=== PATIENT | male | born 1965 | race Caucasian/White ===

== ENCOUNTER 2019-06-22 14:17 | Emergency (ER) | payer OTHER ==
--- NOTE | 2019-06-22 15:37 | EDM.PDOC ---
ED HPI GENERAL MEDICAL PROBLEM - General Chief Complaint: Upper Extremity Injury/Pain Stated Complaint: RT ELBOW INJURY Time Seen by Provider: 06/22/19 14:29 Source of Information: Reports: Patient History Limitations: Reports: No Limitations - History of Present Illness INITIAL COMMENTS - FREE TEXT/NARRATIVE: Patient is a 53-year-old male who presents to the emergency department with complaints of swelling to his right elbow. He states proximally 2 weeks ago he hit his elbow on what he thinks was a bolt. It did not break the skin, however he did have significant bruising to his upper forearm as well as his elbow. The swelling has improved, however he does have a golf ball sized pocket directly over his olecranon process. He states it is tender if he bumps it on something is quite painful. Patient does verbalize that he drinks alcohol daily. 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 Right Elbow Pain Score (Numeric/FACES): 9 - Related Data Allergies Allergy/AdvReac Type Severity Reaction Status Date / Time No Known Allergies Allergy Verified 06/22/19 14:27 Home Meds: Home Meds Naproxen [Naprosyn] 500 mg PO Q12HR 7 Days #14 tab 06/22/19 [Rx] Omeprazole 20 mg PO DAILY #7 nick. 06/22/19 [Rx] Past Medical History HEENT History: Reports: None Cardiovascular History: Reports: Hypertension, [place] Respiratory History: Reports: Asthma, Other (See Below) Other Respiratory History: polyps in lungs Gastrointestinal History: Reports: None Genitourinary History: Reports: None Musculoskeletal History: Reports: Arthritis Other Musculoskeletal History: Toes were fused and corrected surgically Neurological History: Reports: None Psychiatric History: Reports: None Endocrine/Metabolic History: Reports: None Hematologic History: Reports: None Other Immunologic History: Hep C states it is dorment Oncologic (Cancer) History: Reports: None Dermatologic History: Reports: None - Infectious Disease History Infectious Disease History: Reports: Hepatitis C - Past Surgical History HEENT Surgical History: Reports: Tonsillectomy Musculoskeletal Surgical History: Reports: Carpal Tunnel Social & Family History - Family History Family Medical History: Noncontributory Oncologic: Reports: Brain, Lymphoma - Tobacco Use Smoking Status *Q: Former Smoker Used Tobacco, but Quit: Yes Month/Year Tobacco Last Used: 06/12 - Caffeine Use Caffeine Use: Reports: Coffee, Energy Drinks, Soda, Tea - Alcohol Use Number of Drinks Per Day: 8 Date of Last Drink: 06/22/19 Time of Last Drink: 12:00 - Recreational Drug Use Recreational Drug Use: Yes Drug Use in Last 12 Months: No Recreational Drug Type: Reports: Marijuana/Hashish Recreational Drug Use Frequency: Not Used In Over 1 Year Review of Systems - Review of Systems Review Of Systems: See Below Constitutional: Reports: No Symptoms Eyes: Reports: No Symptoms Ears: Reports: No Symptoms Nose: Reports: No Symptoms Mouth/Throat: Reports: No Symptoms Respiratory: Reports: No Symptoms Cardiovascular: Reports: No Symptoms GI/Abdominal: Reports: No Symptoms Genitourinary: Reports: No Symptoms Musculoskeletal: Reports: Other (Right elbow pain and swelling) Skin: Reports: Bruising (Mostly healed) Neurological: Reports: No Symptoms Psychiatric: Reports: No Symptoms ED EXAM, GENERAL - Physical Exam Exam: See Below Exam Limited By: No Limitations General Appearance: Alert, WD/WN, No Apparent Distress Respiratory/Chest: No Respiratory Distress, Lungs Clear, Normal Breath Sounds, No Accessory Muscle Use, Chest Non-Tender Cardiovascular: Normal Peripheral Pulses, Regular Rate, Rhythm, No Edema, No Murmur Extremities: Normal Range of Motion, Other (Tender, spongy, golf ball sized enlargement of the olecranon bursa. Light, mostly healed area of ecchymosis to the right upper forearm. Patient is able to move the extremity without difficulty, however verbalizes pain to the olecranon when the arm is in full flexion) Neurological: Alert, Oriented, Normal Cognition Psychiatric: Normal Affect, Normal Mood Skin Exam: Warm, Dry, Intact, Normal Color, No Rash Lymphatic: No Adenopathy Course - Vital Signs Last Recorded V/S: Last Vital Signs Temp 97.3 F 06/22/19 14:31 Pulse 88 06/22/19 14:31 Resp 6 L 06/22/19 14:31 BP 153/93 H 06/22/19 14:31 Pulse Ox 97 06/22/19 14:31 - Orders/Labs/Meds Orders: Active Orders 24 hr Category Date Time Status Elbow Min 3V Rt [CR] Stat Exams 06/22/19 14:47 Taken - Re-Assessments/Exams Free Text/Narrative Re-Assessment/Exam: 06/22/19 15:20 X-ray of the right elbow shows no bony abnormality. The patient does have bursitis of the right elbow. Discussed the risk to benefit of attempting to aspirate the bursa. Patient elected to give it a few more weeks to heal to see if it improves on its own. We did wrap the joint with an Arnel wrap and discuss him picking up an elbow brace at a drugstore. I will order a 7 day course of Naprosyn. I discussed with the patient that he should not drink while using this, however he states that he likely will any way. He has no history of GI bleeds. I also ordered him to take omeprazole 20 mg daily while taking the Naprosyn to provide protection to his stomach. He is also advised to take the medication with food. Discharge instructions as noted. Departure - Departure Time of Disposition: 15:30 Disposition: Home, Self-Care 01 Condition: Good Clinical Impression: Olecranon bursitis of right elbow - Discharge Information *PRESCRIPTION DRUG MONITORING PROGRAM REVIEWED*: No *COPY OF PRESCRIPTION DRUG MONITORING REPORT IN PATIENT JOANA: No Prescriptions: Naproxen [Naprosyn] 500 mg PO Q12HR 7 Days #14 tab Omeprazole 20 mg PO DAILY #7 capsule.dr Instructions: Elbow Bursitis, [id number] Referrals: PCP,Not In Area [Primary Care Provider] - Forms: ED Department Discharge Additional Instructions: You were seen in the emergency department today for pain and swelling to your right elbow after having a traumatic injury 2 weeks ago. X-rays of the elbow were negative. There are no signs of any fractures or bone chips. You do have a traumatic bursitis of the elbow. An Arnel wrap was applied for compression. You may also purchase an elastic elbow brace at any drugstore. We recommend that you wear this for the next couple weeks and try to avoid trauma or rubbing to the elbow. A prescription has been sent for Naprosyn and omeprazole [facility] [place]. The Naprosyn as an anti-inflammatory that you should take twice daily for 7 days. The omeprazole is an antacid that will help to protect your stomach from the medication since you do consume alcohol. As we discussed, I do recommend that you try to avoid alcohol consumption while you're taking the Naprosyn as it can cause medication to be more hard on your stomach. You should also take the medication with food. Generally traumatic bursitis tends to resolve on its own over the course of few weeks. If the area is not improving or the swelling is seeming to get worse, aspiration of the fluid may be an option. We recommend that she follow-up with a primary care provider to discuss this option or if the pain should worsen you may return to the emergency department. Sepsis Event Note - Evaluation Sepsis Screening Result: No Definite Risk - Focused Exam Vital Signs: Vital Signs Temp Pulse Resp BP Pulse Ox 06/22/19 14:31 97.3 F 88 6 L 153/93 H 97 Date Exam was Performed: 06/22/19 Time Exam was Performed: 15:37 - My Orders Last 24 Hours: My Active Orders 06/22/19 14:47 Elbow Min 3V Rt [CR] Stat - Assessment/Plan Last 24 Hours: My Active Orders 06/22/19 14:47 Elbow Min 3V Rt [CR] Stat
--- NOTE | 2019-06-24 07:12 | CR ---
Right elbow: Four views of the right elbow were obtained. Comparison: No previous elbow study. No joint effusion is seen. No acute fracture, dislocation or other bony abnormality is identified. Soft tissue swelling is noted within the region of the olecranon bursa. Impression: 1. Soft tissue swelling in the region of the olecranon bursa. 2. Right elbow study is otherwise unremarkable. Diagnostic code #3 This report was dictated in [place] Standard Time
== END 2019-06-22 16:06 | disposition home or self-care (01) ==
LOC: JD.ED 14:17
DX: M70.21 Olecranon bursitis, right elbow (principal); I10 Essential (primary) hypertension; J45.909 Unspecified asthma, uncomplicated; I25.2 Old myocardial infarction; M19.90 Unspecified osteoarthritis, unspecified site; Z87.891 Personal history of nicotine dependence; Z79.899 Other long term (current) drug therapy
CPT/HCPCS: 73080-26-RT; 73080-RT; 99283; 99283-25

== ENCOUNTER 2020-04-01 10:29 | Emergency (ER) | payer OTHER ==
--- NOTE | 2020-04-01 10:41 | EDM.PDOC ---
ED HPI GENERAL MEDICAL PROBLEM - General Chief Complaint: Cardiovascular Problem Stated Complaint: [facility] Time Seen by Provider: 04/01/20 10:39 Source of Information: Reports: Patient History Limitations: Reports: No Limitations - History of Present Illness INITIAL COMMENTS - FREE TEXT/NARRATIVE: 54-year-old man presents to the clinic at the request of his primary care particular practitioner in [facility]. Reports central chest pressure discomfort since about 2100 hrs. last night when he went to bed. He states he slept all night in fact was a little late for work this morning. States the pain was perhaps a little bit less this morning when he got up and it was last night but still present. He it does not radiate anywhere. No worse or better with drinking and swallowing i.e. no true odynophagia. Past history of heartburn but it really has not bothered him much as of late. No extra burping or belching. No known history of coronary artery disease. Quit smoking cigarettes about a year ago. Used to smoke a pack per day. Still chews some tobacco. Drinks alcohol on a fairly regular basis usually a drink or 2/day. Denies nausea vomiting or diarrhea. Does not feel short of breath. Has a bit of a smoker's cough with occasional brownish sputum production. At the clinic they gave him 324 mg aspirin chewed and a nitroglycerin tablet which he states did seem to help relieve the discomfort in his central chest. ECG done by triage nurse shows sinus rhythm at 66/min. There are Q waves in V1 and V2 suggestive of an old anteroseptal myocardial infarction. There are no signs of acute ischemic change. The patient list Cialis is 1 of his medications but he states he has not taken it for over a month. Onset: Gradual Onset Date: 03/31/20 Onset Time: 21:30 Duration: Hour(s):, Constant, Improving Location: Reports: Chest (Central chest heaviness with no radiation of pain to the back neck or shoulders or arms.) Quality: Reports: Ache, Pressure Severity: Mild Improves with: Reports: None Worsens with: Reports: None, Other Context: Reports: Other. Denies: Activity (Chest pressure discomfort is not any worse on exertion this morning.), Exercise, Lifting, Sick Contact, Trauma Associated Symptoms: Reports: No Other Symptoms (Came on gradually before bed last night.), Chest Pain, Cough. Denies: Confusion, cough w sputum, Diaphoresis, Fever/Chills, Headaches, Loss of Appetite, Malaise, Nausea/Vomiting, Rash, Seizure, Shortness of Breath, Syncope, Weakness Treatments [employer]: Reports: EKG, Other (see below) (Saved aspirin 324 mg at the clinic and killed there as well as a nitroglycerin tablet sublingual.) Left Chest Pain Score (Numeric/FACES): 5 - Related Data Allergies Allergy/AdvReac Type Severity Reaction Status Date / Time No Known Allergies Allergy Verified 04/01/20 10:35 Home Meds: Home Meds Aspirin 81 mg PO DAILY 04/01/20 [History] Famotidine [Pepcid] 20 mg PO BEDTIME #30 tab 04/01/20 [Rx] Tadalafil [Cialis] 10 mg PO DAILY PRN 04/01/20 [History] amLODIPine [Norvasc] 5 mg PO DAILY 04/01/20 [History] atorvaSTATin [Lipitor] 80 mg PO BEDTIME 04/01/20 [History] carvediloL [Carvedilol] 25 mg PO BID 04/01/20 [History] lisinopriL [Lisinopril] 40 mg PO DAILY 04/01/20 [History] Past Medical History HEENT History: Reports: None Cardiovascular History: Reports: Hypertension, MS Respiratory History: Reports: Asthma, Other (See Below) Other Respiratory History: polyps in lungs Gastrointestinal History: Reports: None Genitourinary History: Reports: None, BPH (BPH by history with slow urinary stream not treated.), Other (See Below) (History of erectile dysfunction for the last year or 2.) Musculoskeletal History: Reports: Arthritis Other Musculoskeletal History: Toes were fused and corrected surgically Neurological History: Reports: None Psychiatric History: Reports: None Endocrine/Metabolic History: Reports: None Hematologic History: Reports: None Other Immunologic History: Hep C states it is dorment Oncologic (Cancer) History: Reports: None Dermatologic History: Reports: None - Infectious Disease History Infectious Disease History: Reports: Hepatitis C - Past Surgical History HEENT Surgical History: Reports: Tonsillectomy Musculoskeletal Surgical History: Reports: Carpal Tunnel Social & Family History - Family History Family Medical History: Noncontributory Oncologic: Reports: Brain, Lymphoma - Tobacco Use Smoking Status *Q: Current Every Day Smoker Years of Tobacco use: 20 Packs/Tins Daily: 1 - Caffeine Use Caffeine Use: Reports: Coffee, Energy Drinks - Alcohol Use Alcohol Use History: Yes - Recreational Drug Use Recreational Drug Use: Yes Recreational Drug Type: Reports: Marijuana/Hashish - Living Situation & Occupation Living situation: Reports: Single 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 Denies: Wheezing, Pleuritic Chest Pain (Occasional shortness of breath on exertion), Sputum, Hemoptysis (Occasional nonproductive cough.) Cardiovascular: Reports: Chest Pain, Blood Pressure Problem (History see history of present illness), Lightheadedness (Lightheaded dizzy). Denies: Claudication, Dyspnea on Exertion, Edema ( like he might pass out.), Orthopnea ( medications and admits that he is not very compliant with his blood pressure medications forgets to take them.), Palpitations (Not aware of any palpitations) Endocrine: Reports: Fatigue GI/Abdominal: Reports: No Symptoms. Denies: Nausea, Vomiting : Reports: Frequency, Other (Reports erectile dysfunction for the last couple of years) Musculoskeletal: Reports: Joint Pain (Right his knees hips low back and neck at times) Skin: Reports: No Symptoms Neurological: Reports: Dizziness Psychiatric: Reports: No Symptoms (Dizzy and lightheaded with a associated chest pain development last night which persisted this morning. Feels like he could pass out. No symptoms of true vertigo.) Hematologic/Lymphatic: Reports: No Symptoms Immunologic: Reports: No Symptoms ED EXAM, GENERAL - Physical Exam Exam: See Below Exam Limited By: No Limitations General Appearance: Alert, WD/WN, No Apparent Distress EKG INTERPRETATION EKG Date: 04/01/20 Time: 10:28 Rhythm: NSR Rate (Beats/Min): 66 (Multiple multifocal PVCs) [place]: Normal P-Wave: Enlarged (Left atrial hypertrophy pattern) QRS: Other (Q waves V1 V2 suggesting old anteroseptal myocardial infarction.) ST-T: Other (T wave inversion aVL nonspecific finding) QT: Prolonged (Minimally prolonged) EKG Interpretation Comments: Abnormal ECG Course - Vital Signs Last Recorded V/S: Last Vital Signs Temp 35.8 C L 04/01/20 10:30 Pulse 72 04/01/20 10:30 Resp 16 04/01/20 10:30 BP 150/86 H 04/01/20 10:30 Pulse Ox 97 04/01/20 10:30 - Orders/Labs/Meds Orders: Active Orders 24 hr Category Date Time Status EKG Documentation Completion [RC] STAT Care 04/01/20 10:40 Active Influenza Vaccine Charge [RC] .DISCHARGE Care 04/01/20 10:40 Active Chest 1V Frontal [CR] Stat Exams 04/01/20 10:40 Taken PRO B-TYPE NATRIUR PEPT,BNPPRO [CHEM] Stat Lab 04/01/20 10:43 Received PSA SCREEN [CHEM] Stat Lab 04/01/20 10:43 Received URINALYSIS W/MICROSCOPIC [UA W/MICROSCOPIC] [URIN] Stat Lab 04/01/20 10:41 Ordered Dextrose 5%-0.9% NaCl [Dextrose 5%-Normal Saline] 1,000 Med 04/01/20 10:45 Active ml IV ASDIRECTED Dextrose 5%-0.9% NaCl [Dextrose 5%-Normal Saline] 1,000 Med 04/01/20 11:00 Active ml IV ASDIRECTED Nitroglycerin/D5W [Nitroglycerin 25 MG/D5W 250 ML] Med 04/01/20 11:30 Active 25 mg in 250 ml IV TITRATE Medication Orders Dextrose/Sodium Chloride (Dextrose 5%-Normal Saline) 1,000 mls @ 125 mls/hr IV ASDIRECTED CELINE Last Admin: 04/01/20 11:09 Dose: 125 mls/hr Documented by: DONNA Dextrose/Sodium Chloride (Dextrose 5%-Normal Saline) 1,000 mls @ 150 mls/hr IV ASDIRECTED CELINE Nitroglycerin/Dextrose (Nitroglycerin 25 Mg/D5w 250 Ml) 25 mg in 250 mls @ 6 mls/hr IV TITRATE CELINE; Protocol Labs: Laboratory Tests 04/01/20 04/01/20 04/01/20 Range/Units 10:43 10:43 10:43 WBC 9.52 H (4.23-9.07) K/mm3 RBC 4.35 L (4.63-6.08) M/mm3 Hgb 13.3 L (13.7-17.5) gm/dl Hct 39.9 L (40.1-51.0) % MCV 91.7 (79.0-92.2) fl MCH 30.6 (25.7-32.2) pg MCHC 33.3 (32.2-35.5) g/dl RDW Std Deviation 40.9 (35.1-43.9) fL Plt Count 238 (163-337) K/mm3 MPV 9.7 (9.4-12.3) fl Neut % (Auto) 69.0 H (34.0-67.9) % Lymph % (Auto) 19.9 L (21.8-53.1) % [place] % (Auto) 8.5 (5.3-12.2) % Eos % (Auto) 2.0 (0.8-7.0) Baso % (Auto) 0.5 (0.1-1.2) % Neut # (Auto) 6.57 H (1.78-5.38) K/mm3 Lymph # (Auto) 1.89 (1.32-3.57) K/mm3 [place] # (Auto) 0.81 (0.30-0.82) K/mm3 Eos # (Auto) 0.19 (0.04-0.54) K/mm3 Baso # (Auto) 0.05 (0.01-0.08) K/mm3 PT 10.8 (9.7-11.7) SECONDS INR 1.01 APTT 25 (22-31) SECONDS D-Dimer, Quantitative (0.19-0.50) mg/L Sodium 137 (136-145) mEq/L Potassium 3.6 (3.5-5.1) mEq/L Chloride 102 (98-107) mEq/L Carbon Dioxide 27 (21-32) mEq/L Anion Gap 11.6 (5-15) BUN 26 H (7-18) mg/dL Creatinine 1.6 H (0.7-1.3) mg/dL Est Cr Clr Drug Dosing 55.56 mL/min Estimated GFR (MDRD) 45 (>60) mL/min BUN/Creatinine Ratio 16.3 (14-18) Glucose 95 (74-106) mg/dL Calcium 8.8 (8.5-10.1) mg/dL Magnesium 2.2 (1.8-2.4) mg/dl Total Bilirubin 0.7 (0.2-1.0) mg/dL AST 13 L (15-37) U/L ALT 26 (16-63) U/L Alkaline Phosphatase 86 (46-116) U/L CK-MB (CK-2) 1.5 (0-3.6) ng/ml Troponin I < 0.017 (0.00-0.056) ng/mL C-Reactive Protein <0.2 (<1.0) mg/dL Total Protein 6.5 (6.4-8.2) g/dl Albumin 3.4 (3.4-5.0) g/dl Globulin 3.1 gm/dL Albumin/Globulin Ratio 1.1 (1-2) 04/01/20 Range/Units 10:43 WBC (4.23-9.07) K/mm3 RBC (4.63-6.08) M/mm3 Hgb (13.7-17.5) gm/dl Hct (40.1-51.0) % MCV (79.0-92.2) fl MCH (25.7-32.2) pg MCHC (32.2-35.5) g/dl RDW Std Deviation (35.1-43.9) fL Plt Count (163-337) K/mm3 MPV (9.4-12.3) fl Neut % (Auto) (34.0-67.9) % Lymph % (Auto) (21.8-53.1) % [place] % (Auto) (5.3-12.2) % Eos % (Auto) (0.8-7.0) Baso % (Auto) (0.1-1.2) % Neut # (Auto) (1.78-5.38) K/mm3 Lymph # (Auto) (1.32-3.57) K/mm3 [place] # (Auto) (0.30-0.82) K/mm3 Eos # (Auto) (0.04-0.54) K/mm3 Baso # (Auto) (0.01-0.08) K/mm3 PT (9.7-11.7) SECONDS INR APTT (22-31) SECONDS D-Dimer, Quantitative < 0.19 L (0.19-0.50) mg/L Sodium (136-145) mEq/L Potassium (3.5-5.1) mEq/L Chloride (98-107) mEq/L Carbon Dioxide (21-32) mEq/L Anion Gap (5-15) BUN (7-18) mg/dL Creatinine (0.7-1.3) mg/dL Est Cr Clr Drug Dosing mL/min Estimated GFR (MDRD) (>60) mL/min BUN/Creatinine Ratio (14-18) Glucose (74-106) mg/dL Calcium (8.5-10.1) mg/dL Magnesium (1.8-2.4) mg/dl Total Bilirubin (0.2-1.0) mg/dL AST (15-37) U/L ALT (16-63) U/L Alkaline Phosphatase (46-116) U/L CK-MB (CK-2) (0-3.6) ng/ml Troponin I (0.00-0.056) ng/mL C-Reactive Protein (<1.0) mg/dL Total Protein (6.4-8.2) g/dl Albumin (3.4-5.0) g/dl Globulin gm/dL Albumin/Globulin Ratio (1-2) Meds: Medications Generic Name Dose Route Start Last Admin Trade Name Freq PRN Reason Stop Dose Admin Dextrose/Sodium Chloride 1,000 mls @ 125 mls/hr 04/01/20 10:45 04/01/20 11:09 Dextrose 5%-Normal Saline IV 125 mls/hr ASDIRECTED CELINE Administration Dextrose/Sodium Chloride 1,000 mls @ 150 mls/hr 04/01/20 11:00 Dextrose 5%-Normal Saline IV ASDIRECTED CELINE Nitroglycerin/Dextrose 25 mg in 250 mls @ 6 mls/hr 04/01/20 11:30 Nitroglycerin 25 Mg/D5w 250 Ml IV TITRATE CELINE Protocol 10 MCG/MIN Discontinued Medications Generic Name Dose Route Start Last Admin Trade Name Freq PRN Reason Stop Dose Admin Influenza Virus Vaccine 60 mcg 04/01/20 11:30 04/01/20 11:10 Fluzone Quad 1050-2115 Syringe IM 04/01/20 11:31 60 mcg .ONCE ONE Administration - Radiology Interpretation Free Text/Narrative:: 54-year-old male sent in from [facility] where he seen a primary care provider at the clinic. He was complaining of central chest pain that started last night before bed and persisted overnight and was slightly improved this morning. No relief with burping belching or swallowing. Patient therefore to the ED for cardiac evaluation and rule out of MS. - Re-Assessments/Exams Free Text/Narrative Re-Assessment/Exam: 04/01/20 11:05: Chest x-ray reveals a 2.2 cm round noncalcified nodule right middle lobe. Round 7 mm noncalcified nodule left apex. The lungs are otherwise clear. The patient knew all about these lung nodules and has been followed every [address] scan. Normal heart and mediastinal silhouette. Normal pulmonary vessel caliber normal aorta lungs are clear. Free Text/Narrative Re-Assessment/Exam: 04/01/20 13:01 White Count is 9.52. Differential shows 69% neutrophils on the auto differential. Hemoglobin is 13.3 with hematocrit of 39.9. MCV is 91.7. Platelet count 238,000. PT is 10.8 with an INR of 1.01 PTT is 25 and d-dimer is less than 0.19. Sodium 137 with potassium of 3.6. Chloride 102 with a bicarb of 27. Anion gap is 11.6. BUN is 26 slightly elevated with a creatinine of 1.6 which is also elevated. GFR is 45. Glucose is 95 calcium is 8.8 magnesium 2.2 bilirubin is 0.7 remainder of the liver function is normal CK-MB fraction is 1.5 troponin I is less than 0.017. C-reactive protein is less than 0.2. Total protein 6.5 with an albumin fraction of 3.4. 04/01/20 13:16 he states he has no pain at present. He feels good since eating. Because of his chest pain is therefore unclear. He has had no further chest pain since being in the ED. His nitroglycerin drip never did get started. He will be discharged home to follow-up if he has similar problems. He reports he has had an ECG stress test in the past which he passed with flying colors. I suspect the cause may well be reflux with esophageal spasm. Suggest the patient take Pepcid 20 mg once daily at bedtime with his blood pressure medication so that he can remember to take them on a daily basis. Of note BP here was 136/78. No changes to be made to any of his medications other than the addition of Pepcid 20 mg at at bedtime. Departure - Departure Time of Disposition: 13:18 Disposition: Home, Self-Care 01 Reason for Transfer *Q: Other Condition: Fair Clinical Impression: Non-cardiac chest pain, Esophageal spasm Hypertensive heart disease Qualifiers: Heart failure presence: without heart failure Qualified Code(s): I11.9 - Hypertensive heart disease without heart failure Prescriptions: Famotidine [Pepcid] 20 mg PO BEDTIME #30 tab Referrals: PCP,None [Primary Care Provider] - Forms: ED Department Discharge Additional Instructions: Evaluation in the emergency room this morning at the request of your primary care provider in [facility], when you presented to the clinic with reported central chest pressure pain discomfort since last evening. Complete cardiac work-up carried out through the emergency room reveals no evidence of heart attack. Her ECG is suspicious for an old heart attack in the anterior septal wall but nothing new. There are some changes in the ECG that suggest that the heart is mildly enlarged from blood pressure that may not a be all that well controlled suggest taking her medications every night at bedtime. Chest x-ray revealed the nodules that you described. The largest is 2.2 cm in the right middle lobe. There is around 7 mm noncalcified nodule in the left apex of the lung as well. I suspect that the cause of your chest pain was esophageal spasm likely due to inflammation from reflux during the night when you are sleeping and therefore you are not aware of any heartburn or discomfort. Suggest taking Pepcid 20 mg every night at bedtime for the next month or so to allow the inflammation of the food pipe to heal. Avoid irritants such as acidic foods and condiments such as ketchup and mustard as these may irritate the food pipe. Very hot coffee might also irritate the food pipe or ice water. Continue all activity as per your normal. Follow-up with personal care physician if any further problems occur. Sepsis Event Note (ED) - Evaluation Sepsis Screening Result: No Definite Risk - Focused Exam Vital Signs: Vital Signs Temp Pulse Resp BP Pulse Ox 04/01/20 10:30 35.8 C L 72 16 150/86 H 97 - My Orders Last 24 Hours: My Active Orders 04/01/20 10:40 EKG Documentation Completion [RC] STAT Influenza Vaccine Charge [RC] .DISCHARGE Chest 1V Frontal [CR] Stat 04/01/20 10:41 URINALYSIS W/MICROSCOPIC [UA W/MICROSCOPIC] [URIN] Stat 04/01/20 10:43 PRO B-TYPE NATRIUR PEPT,BNPPRO [CHEM] Stat PSA SCREEN [CHEM] Stat 04/01/20 10:45 Dextrose 5%-0.9% NaCl [Dextrose 5%-Normal Saline] 1,000 ml IV ASDIRECTED 04/01/20 11:00 Dextrose 5%-0.9% NaCl [Dextrose 5%-Normal Saline] 1,000 ml IV ASDIRECTED 04/01/20 11:30 Nitroglycerin/D5W [Nitroglycerin 25 MG/D5W 250 ML] 25 mg in 250 ml IV TITRATE - Assessment/Plan Last 24 Hours: My Active Orders 04/01/20 10:40 EKG Documentation Completion [RC] STAT Influenza Vaccine Charge [RC] .DISCHARGE Chest 1V Frontal [CR] Stat 04/01/20 10:41 URINALYSIS W/MICROSCOPIC [UA W/MICROSCOPIC] [URIN] Stat 04/01/20 10:43 PRO B-TYPE NATRIUR PEPT,BNPPRO [CHEM] Stat PSA SCREEN [CHEM] Stat 04/01/20 10:45 Dextrose 5%-0.9% NaCl [Dextrose 5%-Normal Saline] 1,000 ml IV ASDIRECTED 04/01/20 11:00 Dextrose 5%-0.9% NaCl [Dextrose 5%-Normal Saline] 1,000 ml IV ASDIRECTED 04/01/20 11:30 Nitroglycerin/D5W [Nitroglycerin 25 MG/D5W 250 ML] 25 mg in 250 ml IV TITRATE
[2020-04-01] MEDS ORDERED: Dextrose 5%-0.9% NaCl 1,000 ML IV SCH ×2 (10:45→11:00)
[2020-04-01] MEDS ORDERED: Nitroglycerin/D5W 25 MG/250 ML BOTTLE IV SCH (11:30)
[2020-04-01] MEDS ORDERED: FLU VACC QS2020-21(6MOS UP)/PF 60 MCG/0.5 ML SYRINGE IM ONE (11:30)
== END 2020-04-01 14:00 | disposition home or self-care (01) ==
LOC: JD.ED 10:29
DX: R07.89 Other chest pain (principal); K22.4 Dyskinesia of esophagus; I11.0 Hypertensive heart disease with heart failure; I50.9 Heart failure, unspecified; M25.561 Pain in right knee; M25.551 Pain in right hip; M25.552 Pain in left hip; M54.5 Low back pain; M54.2 Cervicalgia; I25.2 Old myocardial infarction; M19.90 Unspecified osteoarthritis, unspecified site; F17.210 Nicotine dependence, cigarettes, uncomplicated; Z79.82 Long term (current) use of aspirin; Z79.899 Other long term (current) drug therapy; Z23 Encounter for immunization
CPT/HCPCS: 36415; 71045; 80053; 82553; 83735; 83880; 84484; 85025; 85379; 85610; 85730; 86140; 90471; 90686; 93005; 99285; G0103; J7042; 93010; 99283; G0008